=== PATIENT | male | born 1930 | race Caucasian/White ===

== ENCOUNTER 2017-11-17 21:34 | Inpatient (IN) | payer BC, OTHER ==
[~2017-11-17] VITALS: Ht 175.3 cm; Wt 68.1 kg
[2017-11-17] MEDS ORDERED: SODIUM CHLORIDE FLUSH 10ML SYR IVF ONE (22:00)
[2017-11-17 22:26] LABS: BASOPHILS # (AUTO) 0.05 x10^3/uL (0-0.1); BASOPHILS % (AUTO) 1 % (0-1); EOSINOPHILS # (AUTO) 0.14 x10^3/uL (0-0.4); EOSINOPHILS % (AUTO) 2 % (1-7); LYMPHOCYTES # (AUTO) 1.91 x10^3/uL (1-3.4); LYMPHOCYTES % (AUTO) 27 % (22-44); MD NO; MEAN CORPUSCULAR HEMOGLOBIN 29.7 pg (27.5-34.5); MEAN CORPUSCULAR HGB CONC 34.2 g/dL (33.2-36.2); MEAN CORPUSCULAR VOLUME 86.9 fL (81-97); MEAN PLATELET VOLUME 8.2 fL (7.4-10.4); MONOCYTES # (AUTO) 0.48 x10^3/uL (0.2-0.8); MONOCYTES % (AUTO) 7 % (2-9); NEUTROPHILS # (AUTO) 4.58 x10^3/uL (1.8-6.8); NEUTROPHILS % (AUTO) 64 % (42-75); PLATELET COUNT 265 x10^3/uL (130-400); RED BLOOD COUNT 4.75 x10^6/uL (4.38-5.82); RED CELL DISTRIBUTION WIDTH 13.6 % (9.4-14.8)
[2017-11-17] MEDS ORDERED: klonopin (22:27)
[2017-11-17 22:34] LABS: INTERNATIONAL NORMALIZED RATIO 0.97 (0.93-1.1); PROTHROMBIN TIME 10.1 Seconds (9.6-11.5)
[2017-11-17 22:36] LABS: ALANINE AMINOTRANSFERASE 24 U/L (12-78); ALBUMIN 3.8 g/dL (3.4-5.0); ANION GAP 8 mmol/L (5-15); CALCIUM 9.1 mg/dL (8.5-10.1); CHLORIDE 110 mmol/L (98-107); CREATININE 1.27 mg/dL (0.7-1.3)
[2017-11-17 22:39] LABS: ALKALINE PHOSPHATASE 64 U/L (45-117); BILIRUBIN,TOTAL 0.4 mg/dL (0.2-1.0); TOTAL PROTEIN 6.9 g/dL (6.4-8.2)
[2017-11-17] MEDS ORDERED: ASPIRIN 81 MG TABLET CHEW ONE (23:05)
[2017-11-17] MEDS ORDERED: ONDANSETRON 2MG/ML, 2ML IVPush PRN (23:30)
[2017-11-17] MEDS ORDERED: BISACODYL 10 MG SUPP PR PRN (23:30)
[2017-11-17] MEDS ORDERED: ACETAMINOPHEN 650 MG/20.3 ML UDC PO PRN (23:30)
[2017-11-17] MEDS ORDERED: SENNA/DOCUSATE TABLET PO PRN (23:30)
[2017-11-17] MEDS ORDERED: ENALAPRILAT 1.25 MG/ML, 2ML IV PRN (23:30)
[2017-11-17] MEDS ORDERED: ATORVASTATIN 40 MG TABLET PO SCH (23:30)
[2017-11-17] MEDS ORDERED: ASPIRIN 325 MG TABLET PO ONE (23:30)
[2017-11-17] MEDS ORDERED: POLYETHYLENE GLYCOL 17 GM PACKET PO PRN (23:30)
[2017-11-18 05:18] LABS: CHOL/HDL RATIO 4.4
[2017-11-18] MEDS ORDERED: ASPIRIN 325 MG TABLET PO SCH (06:00)
[2017-11-18] MEDS ORDERED: LISINOPRIL 10 MG TABLET ONE (08:14)
[2017-11-18] MEDS ORDERED: ASPIRIN 325 MG TABLET ONE (08:14)
[2017-11-18] MEDS ORDERED: ASPIRIN 81 MG TABLET CHEW ONE (08:15)
[2017-11-18] MEDS ORDERED: LISINOPRIL 10 MG TABLET PO SCH (09:00)
[2017-11-18] MEDS ORDERED: ASPIRIN 81 MG TABLET EC PO SCH (12:13)
[2017-11-18 13:46] VITALS: BP 141/82
[2017-11-18] MEDS ORDERED: CLON2TAB PO (14:25)
[2017-11-18 14:35] VITALS: BP 156/74
[2017-11-18] MEDS ORDERED: ATOR40TA78 PO (16:21)
[2017-11-18] MEDS ORDERED: LISI-167 PO (16:21)
[2017-11-18] MEDS ORDERED: ASPI-621 PO (16:21)
[2017-11-18] MEDS ORDERED: ATORVASTATIN 20 MG TABLET PO SCH (21:00)
[2017-11-19] MEDS ORDERED: ASPIRIN 81 MG TABLET EC PO SCH (06:00)
== END 2017-11-18 17:15 | disposition home or self-care (01) | DRG 69 ==
LOC: ED 23:51 → EDIP 23:59 → 4EST 11-18 12:11
PROVIDERS: ADMIT Hospitalist; ATTEND Hospitalist
DX: G45.9 Transient cerebral ischemic attack, unspecified (principal); Q21.1 Atrial septal defect; I16.1 Hypertensive emergency; G45.1 Carotid artery syndrome (hemispheric); E78.5 Hyperlipidemia, unspecified; G47.00 Insomnia, unspecified; I10 Essential (primary) hypertension; I70.0 Atherosclerosis of aorta; R47.02 Dysphasia; M54.9 Dorsalgia, unspecified; Z79.82 Long term (current) use of aspirin; Z85.46 Personal history of malignant neoplasm of prostate; Z86.73 Personal history of transient ischemic attack (TIA), and cerebral infarction without residual deficits; Z90.79 Acquired absence of other genital organ(s); Z90.49 Acquired absence of other specified parts of digestive tract; Z88.5 Allergy status to narcotic agent
CPT/HCPCS: 36415; 70450; 70551; 80053; 80061; 85025; 85610; 85730; 93005; 93306; 93880; 99285; 92523-GN

== ENCOUNTER 2018-07-01 14:23 | Emergency (ER) | payer OTHER ==
[~2018-07-01 14:23] MED LIST: ASPI81TA45 PO; ATOR40TA78 PO; CLON2TAB PO; LISI-167 PO; klonopin
[2018-07-01] MEDS ORDERED: SODIUM CHLORIDE FLUSH 10ML SYR IVF ONE (14:30)
[2018-07-01 14:56] LABS: MEAN CORPUSCULAR HEMOGLOBIN 29.8 pg (27.5-34.5); MEAN CORPUSCULAR HGB CONC 33.8 g/dL (33.2-36.2); MEAN CORPUSCULAR VOLUME 88.1 fL (81-97); MEAN PLATELET VOLUME 9.6 fL (7.4-10.4); PLATELET COUNT 329 x10^3/uL (130-400); RED CELL DISTRIBUTION WIDTH 13.1 % (9.4-14.8)
[2018-07-01 15:08] LABS: ALBUMIN 3.4 g/dL (3.4-5.0); ANION GAP 12 mmol/L (5-15); CALCIUM 9.2 mg/dL (8.5-10.1); CHLORIDE 104 mmol/L (98-107)
[2018-07-01 15:11] LABS: ALANINE AMINOTRANSFERASE 61 U/L (12-78); ALKALINE PHOSPHATASE 73 U/L (45-117); BILIRUBIN,TOTAL 0.9 mg/dL (0.2-1.0); CREATININE 1.25 mg/dL (0.7-1.3); TOTAL PROTEIN 7.1 g/dL (6.4-8.2)
[2018-07-01 15:36] LABS: BASOPHILS # (AUTO) 0.09 x10^3/uL (0-0.1); BASOPHILS % (AUTO) 1 % (0-1); EOSINOPHILS # (AUTO) 0.03 x10^3/uL (0-0.4); EOSINOPHILS % (AUTO) 0 % (1-7); LYMPHOCYTES # (AUTO) 1.63 x10^3/uL (1-3.4); LYMPHOCYTES % (AUTO) 11 % (22-44); MD SCAN; MONOCYTES # (AUTO) 1.32 x10^3/uL (0.2-0.8); MONOCYTES % (AUTO) 9 % (2-9); NEUTROPHILS # (AUTO) 11.77 x10^3/uL (1.8-6.8); NEUTROPHILS % (AUTO) 79 % (42-75)
[2018-07-01 18:58] LABS: MICROSCOPIC INDICATED
[2018-07-01 19:12] LABS: CULTURE INDICATED? NO
[2018-07-01 19:20] VITALS: BP 142/81
== END 2018-07-01 19:51 | disposition home or self-care (01) ==
LOC: ED 16:30
DX: K59.00 Constipation, unspecified (principal); Z86.73 Personal history of transient ischemic attack (TIA), and cerebral infarction without residual deficits
CPT/HCPCS: 36415; 70450; 74022; 80053; 81001; 85025; 99284